=== PATIENT | female | born 2000 ===

== ENCOUNTER 2020-02-22 15:37 | Emergency (ER) | payer OTHER ==
[~2020-02-22] VITALS: Ht 165.1 cm; Wt 61.2 kg
== END 2020-02-22 20:38 | disposition home or self-care (01) ==
LOC: EMR PED 15:37 → ER 16:19 → EMR PED 16:19 → ER 20:38
DX: O20.8 Other hemorrhage in early pregnancy (principal); O43.891 Other placental disorders, first trimester; Z3A.12 12 weeks gestation of pregnancy